=== PATIENT | female | born 2000 | race Two or more races ===

== ENCOUNTER 2022-01-24 10:48 | Emergency (ER) | payer OTHER ==
[~2022-01-24] VITALS: Ht 167.6 cm; Wt 64.4 kg
[2022-01-24] MEDS ORDERED: CETIRIZINE-PSE1 EACH PO (11:29)
[2022-01-24] MEDS ORDERED: OSEL75CA PO (14:06)
[2022-01-24] MEDS ORDERED: TUSSIN DM SYRU118 ML PO (14:06)
[2022-01-24] MEDS ORDERED: CLARITIN10 M1 PO (14:06)
== END 2022-01-24 14:13 | disposition home or self-care (01) ==
LOC: ER 10:48 → EMR PED 10:48 → ER 12:20
DX: B34.9 Viral infection, unspecified (principal); Z91.011 Allergy to milk products; Z91.018 Allergy to other foods; Z20.822 Contact with and (suspected) exposure to COVID-19

== ENCOUNTER 2022-10-10 09:04 | Outpatient (CLI) | payer OTHER ==
[~2022-10-10 09:04] MED LIST: CETIRIZINE-PSE1 EACH PO; CLARITIN10 M1 PO; OSEL75CA PO; TUSSIN DM SYRU118 ML PO
== END 2022-10-10 10:40 | disposition home or self-care (01) ==
LOC: PRENATAL 09:04
PROVIDERS: ATTEND Obstetrics & Gynecology Maternal & Fetal Medicine
DX: O35.9XX0 Maternal care for (suspected) fetal abnormality and damage, unspecified, not applicable or unspecified (principal); O35.3XX0 Maternal care for (suspected) damage to fetus from viral disease in mother, not applicable or unspecified; O99.891 Other specified diseases and conditions complicating pregnancy; O26.879 Cervical shortening, unspecified trimester; Z3A.23 23 weeks gestation of pregnancy

== ENCOUNTER 2022-11-15 08:47 | Outpatient (CLI) | payer OTHER | END 2022-11-15 09:29 | disposition home or self-care (01) | LOC: PRENATAL 08:47 | PROVIDERS: ATTEND Obstetrics & Gynecology Maternal & Fetal Medicine | DX: O26.879 Cervical shortening, unspecified trimester (principal); Z3A.28 28 weeks gestation of pregnancy ==

== ENCOUNTER 2022-12-29 10:53 | Outpatient (CLI) | payer OTHER | END 2022-12-29 12:07 | disposition home or self-care (01) | LOC: PRENATAL 10:53 | PROVIDERS: ATTEND Obstetrics & Gynecology Maternal & Fetal Medicine | DX: O26.849 Uterine size-date discrepancy, unspecified trimester (principal); O26.879 Cervical shortening, unspecified trimester; O36.8199 Decreased fetal movements, unspecified trimester, other fetus; Z3A.34 34 weeks gestation of pregnancy ==

== ENCOUNTER 2023-02-01 07:40 | Inpatient (IN) | payer OTHER ==
[~2023-02-01] VITALS: Ht 167.6 cm; Wt 83.5 kg
[2023-02-01] MEDS ORDERED: FOLIC ACID0.8 M1 (08:28)
[2023-02-01] MEDS ORDERED: PRENATAL TABLE1 EAC1 (08:28)
== END 2023-02-03 15:22 | disposition home or self-care (01) | DRG 807 ==
LOC: LDR 07:40 → OB/GYN 17:09
PROVIDERS: ADMIT Obstetrics & Gynecology; ATTEND Obstetrics & Gynecology
PROC: 10E0XZZ Delivery of Products of Conception, External Approach (ICD-10-PCS; principal; 2023-02-01)
PROC: 0KQM0ZZ Repair Perineum Muscle, Open Approach (ICD-10-PCS; 2023-02-01)
PROC: 4A1HXCZ Monitoring of Products of Conception, Cardiac Rate, External Approach (ICD-10-PCS; 2023-02-02)
DX: O70.1 Second degree perineal laceration during delivery (principal); Z37.0 Single live birth; Z3A.39 39 weeks gestation of pregnancy; Z20.822 Contact with and (suspected) exposure to COVID-19